=== PATIENT | male | born 1985 | race African-American/Black ===

== ENCOUNTER 2019-09-24 22:58 | Emergency (ER) | payer OTHER, SELFPAY ==
[2019-09-24 23:07] VITALS: BP 147/89; PULSE 85; RESP 18; TEMP 36.8; O2SAT 96
[2019-09-25 00:20] VITALS: PULSE 84; RESP 16
[2019-09-25] MEDS: IPRATROPIUM BR 0.02% INH SOLN 0.5 MG/2.5 ML VIAL INHALATION (00:23)
[2019-09-25] MEDS: ALBUTEROL SULFATE NEB 2.5 MG/3 ML INH 1.25 MG INHALATION (00:23)
[2019-09-25 00:30] VITALS: PULSE 83; RESP 16
--- NOTE | 2019-09-25 01:32 | ED.ASTHMA ---
HPI - Asthma General Chief Complaint: Asthma Stated Complaint: asthma Time Seen by Provider: 09/25/19 01:28 History of Present Illness HPI Narrative: Patient presents with wheezing or shortness of breath. He has a known history of asthma. He only has an Atrovent inhaler, which he said was not helping. 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 He has not had any exposure to sick people. He has had asthma since he was born. complaint: asthma attack , shortness of breath and wheezing Onset (ago): hour(s) Severity: moderate Context: other (Unknown) Asthma History: childhood onset Treatments Prior to Arrival: other (Atrovent inhaler) Related Data Home Medications Medication Instructions Recorded Confirmed No Home Medications 09/24/19 09/24/19 albuterol sulfate [ProAir HFA] 2 puff INHALATION QID PRN 09/24/19 Allergies Allergy/AdvReac Type Severity Reaction Status Date / Time No Known Allergies Allergy Verified 09/24/19 22:59 Review of Systems Review of Systems: Narrative: CONSTITUTIONAL: Denies fever, chills, or sweats. EYES: Denies visual changes, redness, or discharge. ENT: Denies rhinorrhea, congestion, sore throat, or otalgia. CARDIOVASCULAR: Denies chest pain, palpitations, or edema. RESPIRATORY: Has SOB and wheezing. GASTROINTESTINAL: Denies abdominal pain, nausea, vomiting, or diarrhea. GENITOURINARY: Denies dysuria or hematuria. SKIN: Denies rash or itching. MUSCULOSKELETAL: Denies back pain, joint pain, or myalgia. NEUROLOGIC: Denies headache, numbness, or weakness. PSYCHIATRIC: Denies anxiety or depression. PMFSH Surgical History Surgical History History of circumcision Social History Social History (Updated 09/25/19 @ 01:34 by Traci Briones MD) Smoking status: Never smoker Alcohol intake: current Substance use: never Exam Narrative: Exam Narrative: GENERAL: Well-appearing, well-nourished, and in no acute distress.Overweight, sleeping, HEAD: Normocephalic, atraumatic. EYES: PERRLA and EOMI. ENT: Nares clear, no rhinorrhea or epistaxis. Mucous membranes moist. NECK: Supple. CHEST: Scattered wheezes. no respiratory distress. HEART: Regular rate and rhythm. No murmur heard. Normal peripheral pulses. ABDOMEN: Soft, nontender, nondistended, normal active bowel sounds. EXTREMITIES: Normal range of motion. No edema. SKIN: Warm, dry, no rash. NEURO: No focal deficits. Alert and oriented x3. PSYCH: Normal mood and affect. Course Reevaluation(s) Reevaluation #1: Went back into check on the patient, and he was sleeping through his alarm on his phone. His wheezes are gone. He asked for a day off of work. Granted. Date: 09/25/19 Time: 03:06 Vital Signs Vital signs: Vital Signs Temperature 98.3 F 09/24/19 23:07 Pulse Rate 85 09/24/19 23:07 Respiratory Rate 18 09/24/19 23:07 Blood Pressure 147/89 H 09/24/19 23:07 Pulse Oximetry 96 09/24/19 23:07 Temperature 98.3 F 09/24/19 23:07 Pulse Rate 84 09/25/19 02:33 Respiratory Rate 18 09/25/19 02:33 Blood Pressure 150/94 H 09/25/19 01:44 Pulse Oximetry 97 09/25/19 01:44 Discharge Plan Discharge Clinical Impression: Asthma Patient Disposition: Home, Self-Care Condition: Stable Instructions: Asthma (ED) Prescriptions: New methylprednisolone [Medrol (Parviz)] 4 mg tablets,dose pack See Rx Instructions .ROUTE .COMPLEX Qty: 21 RF: 0 No Action albuterol sulfate [ProAir HFA] 90 mcg/actuation Hfa Aerosol Inhaler 2 puff INHALATION QID PRN (Reason: Shortness Of Breath Or Wheezing) RF: 0 No Home Medications RF: 0 Follow-up/Referrals: PHYSICIAN,HYPO DIPPER [Primary Care Provider] - Bandar Lau MD [Physician] - (Call and make a new patient appointment) Stand Alone Forms: Work/School Release IP Time of Disposition: 03:01
[2019-09-25] MEDS: predniSONE 20 MG TABLET 60 MG PO (01:42)
[2019-09-25 01:44] VITALS: BP 150/94; PULSE 89; RESP 20; O2SAT 97
[2019-09-25] MEDS: ALBUTEROL SULFATE NEB 2.5 MG/0.5 ML INH 10 MG INHALATION (01:45)
[2019-09-25 01:48] VITALS: PULSE 85; RESP 18
[2019-09-25 02:33] VITALS: PULSE 84; RESP 18
[2019-09-25 03:18] VITALS: BP 104/57; PULSE 85; RESP 18; O2SAT 97
== END 2019-09-25 03:20 | disposition home or self-care (01) ==
PROVIDERS: Emergency Provider Emergency Medicine
DX: J45.909 Unspecified asthma, uncomplicated (principal)
CPT/HCPCS: 94640; 99284; J7512

== ENCOUNTER 2019-09-26 11:18 | Outpatient (NON) | payer OTHER, SELFPAY ==
[2019-09-27 13:10] LABS: SARS-CoV-2 RNA PCR Negative
== END 2019-09-26 11:19 ==
PROVIDERS: PCP Emergency Medicine; Visit Provider Emergency Medicine
DX: R06.02 Shortness of breath (principal); R05 Cough; Z20.828 Contact with and (suspected) exposure to other viral communicable diseases
CPT/HCPCS: 87635; C9803; U0003

== ENCOUNTER → 2019-10-24 15:55 | Outpatient (CLI) | payer OTHER, SELFPAY ==
--- NOTE | ~2019-10-24 | XR_ITS ---
EXAMINATION: XR chest 2V DATE: 10/24/2019 16:27 INDICATION: Asthma TECHNIQUE: AP and lateral views of the chest are obtained. COMPARISON: None available FINDINGS: The lungs are free of acute opacities. There is no pleural effusion or pneumothorax. The ca rdiomediastinal silhouette is normal. The visualized bones and soft tissues are unremarkable. IMPRESSION: 1. No acute cardiopulmonary abnormality. Reviewed, dictated and finalized at location A.
--- NOTE | ~2019-10-24 | XR_ITS ---
EXAMINATION: XR hand LT min 3V INDICATION: Left hand pain TECHNIQUE: Three views of the left hand are obtained. COMPARISON: None available FINDINGS: There is no fracture, dislocation, or subluxation. The bones, soft tissues, and joint space s are normal. IMPRESSION: 1. No acute osseous abnormality. Reviewed, dictated and finalized at location A.
--- NOTE | ~2019-10-24 | XR_ITS ---
EXAMINATION: XR hand RT min 3V INDICATION: Right hand pain, initial encounter TECHNIQUE: Three views of the right hand are obtained. COMPARISON: None available FINDINGS: There is an age-indeterminate lateral tuft fracture of the fourth distal phalanx. No additi onal acute osseous findings are suspected. The joint spaces are normal. IMPRESSION: 1. Age-indeterminate lateral tuft fracture of the fourth distal phalanx. Reviewed, dictated and finalized at location A.
== END ==
PROVIDERS: PCP Emergency Medicine; Visit Provider Emergency Medicine
DX: J45.909 Unspecified asthma, uncomplicated (principal)
CPT/HCPCS: 71046; 73130

== ENCOUNTER 2020-07-10 16:47 | Emergency (ER) | payer OTHER, MEDICAID, SELFPAY ==
[2020-07-10 17:08] VITALS: BP 170/85; PULSE 82; RESP 18; TEMP 36.6; O2SAT 97
--- NOTE | 2020-07-10 17:48 | PC.NURSE ---
Pt presents to ED with family with no complaints. states he came in to make sure that I wasn't sick and didn't have any viruses . Pt denies all pain and discomfort, nausea, emesis, fever, cough, chest pain and sob at this time. Pt resting on cart in room in no obvious distress. Breathing noted to be even and unlabored. call button and personal items within reach. Advised to press call button for assistance.
--- NOTE | 2020-07-10 17:52 | ED.GENADULT ---
HPI - General Adult General Chief complaint: Nausea/Vomiting/Diarrhea Stated complaint: n/v/d Time Seen by Provider: 07/10/20 16:49 Source: patient Mode of arrival: ambulatory Limitations: no limitations History of Present Illness HPI narrative: Patient is a 35-year-old male who presents to emergency department for evaluation of concern for illness noting that his and daughter both had vomiting and diarrhea for the last day patient himself denies any symptoms and presents in no distress denies pain denies vomiting denies diarrhea has not taken anything for his symptoms Related Data Home Medications Medication Instructions Recorded Confirmed No Home Medications 09/24/19 09/24/19 albuterol sulfate [ProAir HFA] 2 puff INHALATION QID PRN 09/24/19 Allergies Allergy/AdvReac Type Severity Reaction Status Date / Time No Known Allergies Allergy Verified 07/10/20 17:11 Review of Systems Review of Systems: All systems reviewed & are unremarkable except as noted in HPI and below PMFSH Surgical History Surgical History History of circumcision Social History Social History Smoking status: Never smoker Alcohol intake: current Substance use: never Gender identity (if verbalized by the patient): Male Exam Narrative: Exam Narrative: GENERAL: Well-appearing, well-nourished, and in no acute distress. HEAD: Normocephalic, atraumatic. EYES: PERRLA and EOMI. ENT: Nares clear, no rhinorrhea or epistaxis. Mucous membranes moist. CHEST: Clear to auscultation. No respiratory distress. No wheezes rales or rhonchi HEART: Regular rate and rhythm. No murmur heard. EXTREMITIES: Normal range of motion. No edema. SKIN: Warm, dry, no rash. NEURO: No focal deficits. Alert and oriented x3. Neurovascularly intact. Cranial nerves II through XII grossly intact PSYCH: Normal mood and affect. Course Course Emergency Course: Patient with no complaints in the emergency department resting comfortably will be discharged provided with reasons to return Vital Signs Vital signs: Vital Signs Temperature 98 F 07/10/20 17:08 Pulse Rate 82 07/10/20 17:08 Respiratory Rate 18 07/10/20 17:08 Blood Pressure 170/85 H 07/10/20 17:08 Pulse Oximetry 97 07/10/20 17:08 Temperature 98 F 07/10/20 17:08 Pulse Rate 82 07/10/20 17:08 Respiratory Rate 18 07/10/20 17:08 Blood Pressure 170/85 H 07/10/20 17:08 Pulse Oximetry 97 07/10/20 17:08 Medical Decision Making MDM Narrative Medical decision making narrative: Patient with no distress no complaints will be discharged home Vital Signs Vital Signs: Vital Signs Temperature 98 F 07/10/20 17:08 Pulse Rate 82 07/10/20 17:08 Respiratory Rate 18 07/10/20 17:08 Blood Pressure 170/85 H 07/10/20 17:08 Pulse Oximetry 97 07/10/20 17:08 Temperature 98 F 07/10/20 17:08 Pulse Rate 82 07/10/20 17:08 Respiratory Rate 18 07/10/20 17:08 Blood Pressure 170/85 H 07/10/20 17:08 Pulse Oximetry 97 07/10/20 17:08 Discharge Plan Discharge Clinical Impression: Nausea Patient Disposition: Home, Self-Care Condition: Stable Instructions: Antibiotic Form, Acute Nausea and Vomiting (ED) Prescriptions: No Action albuterol sulfate [ProAir HFA] 90 mcg/actuation Hfa Aerosol Inhaler 2 puff INHALATION QID PRN (Reason: Shortness Of Breath Or Wheezing) RF: 0 No Home Medications RF: 0 methylprednisolone [Medrol (Parviz)] 4 mg tablets,dose pack See Rx Instructions .ROUTE .COMPLEX Qty: 21 RF: 0 Follow-up/Referrals: Bandar Lau MD [Primary Care Provider] -
== END 2020-07-10 18:06 | disposition home or self-care (01) ==
PROVIDERS: Emergency Provider Emergency Medicine; PCP Emergency Medicine
DX: R11.0 Nausea (principal)
CPT/HCPCS: 99281

== ENCOUNTER 2020-07-13 03:17 | Emergency (ER) | payer OTHER, MEDICAID, SELFPAY ==
[2020-07-13] VITALS (10 sets, daily range): BP systolic 123–158; BP diastolic 68–97; PULSE 72–95; RESP 14–17; TEMP 36.4–37; O2SAT 90–97
[2020-07-13 04:02] LABS: Basophils Percent Auto 0.3 % (0.2-1.2); Eosinophils Absolute Auto 0.1 K/mm3 (0-0.3); Hematocrit 47.3 % (42.0-52.0); Hemoglobin 15.4 g/dL (14.0-18.0); Immature Granulocyte Absolute 0.04 K/mm3 (0.00-0.031); Immature Granulocyte Percent A 0.4 % (0-0.5); Lymphocytes Percent Auto 10.7 % (18.3-44.2); Mean Corpuscular HGB Conc 32.6 g/dl (32-36); Mean Corpuscular Hemoglobin 28.5 pg (26-34); Mean Corpuscular Volume 87.4 fl (80-100); Mean Platelet Volume 11.5 fl (7.4-10.4); Monocytes Absolute Auto 0.7 K/mm3 (0.1-0.6); Monocytes Percent Auto 6.8 % (2.6-8.5); Neutrophils Absolute Auto 8.3 K/mm3 (1.3-6.7); Neutrophils Percent Auto 80.8 % (45.5-73.1); Platelet Count Result 163 k/mm3 (150-375); Red Blood Count 5.41 M/mm3 (4.6-6.20); White Blood Count 10.2 K/mm3 (4.5-10.0)
[2020-07-13 04:06] LABS: Add Urine Microscopic? YES; Appearance Urine Clear (Clear); Bacteria Urine Trace /hpf; Bilirubin Urine Negative (Negative); Blood Urine Negative (Negative); Color Urine Yellow (Yellow); Glucose Urine UA Negative (Negative); Ketones Urine Negative (Negative); Leukocyte Esterase Ur Negative LEU/UL (Negative); Mucus Urine Rare /lpf; Nitrate Urine Negative (Negative); Protein Urine 1+ mg/dL (Negative); RBC Urine 0-2 /hpf (0-2); WBC Urine 0-3 /hpf
[2020-07-13] MEDS: ONDANSETRON INJ 4 MG/2 ML VIAL IV PUSH (04:06)
--- NOTE | 2020-07-13 04:06 | ED.GENADULT ---
HPI - General Adult General Chief complaint: Nausea/Vomiting/Diarrhea Stated complaint: N/V/D XTD Time Seen by Provider: 07/13/20 03:25 History of Present Illness HPI narrative: Patient is a 35-year-old gentleman who presents to emergency department with chief complaint of nausea vomiting and diarrhea. Patient reports that multiple family members in his household with gastroenteritis and he has been unable to tolerate p.o. intake today. The patient states that he feels a little lightheaded reports that his stomach is cramping and reports that he has had several episodes of diarrhea. Patient reports that it is worsened with p.o. intake and improved with rest Related Data Home Medications Medication Instructions Recorded Confirmed albuterol sulfate [ProAir HFA] 2 puff INHALATION QID PRN 09/24/19 Allergies Allergy/AdvReac Type Severity Reaction Status Date / Time No Known Allergies Allergy Verified 07/13/20 04:25 Review of Systems Review of Systems: Narrative: A 10 system review of systems was completed on the patient and is negative except for what is stated in the HPI. Nursing and ancillary documentation was reviewed. [facility] Surgical History Surgical History History of circumcision Social History Social History Smoking status: Never smoker Alcohol intake: current Substance use: never Gender identity (if verbalized by the patient): Male Exam Narrative: Exam Narrative: GENERAL: Well-appearing, well-nourished, and in no acute distress. HEAD: Normocephalic, atraumatic. EYES: PERRLA and EOMI. ENT: Nares clear, no rhinorrhea or epistaxis. Mucous membranes moist. NECK: Supple. CHEST: Clear to auscultation. No respiratory distress. HEART: Regular rate and rhythm. No murmur heard. Normal peripheral pulses. ABDOMEN: Soft, nontender, nondistended, normal active bowel sounds. EXTREMITIES: Normal range of motion. No edema. SKIN: Warm, dry, no rash. NEURO: No focal deficits. Alert and oriented x3. PSYCH: Normal mood and affect. Course Vital Signs Vital signs: Vital Signs Temperature 36.4 C 07/13/20 03:24 Pulse Rate 87 07/13/20 03:24 Respiratory Rate 14 07/13/20 03:24 Blood Pressure 147/85 H 07/13/20 03:24 Pulse Oximetry 96 07/13/20 03:24 Temperature 36.4 C 07/13/20 03:24 Pulse Rate 88 07/13/20 05:47 Respiratory Rate 17 07/13/20 05:47 Blood Pressure 125/68 07/13/20 05:47 Pulse Oximetry 95 07/13/20 04:31 Medical Decision Making Vital Signs Vital Signs: Vital Signs Temperature 36.4 C 07/13/20 03:24 Pulse Rate 87 07/13/20 03:24 Respiratory Rate 14 07/13/20 03:24 Blood Pressure 147/85 H 07/13/20 03:24 Pulse Oximetry 96 07/13/20 03:24 Temperature 36.4 C 07/13/20 03:24 Pulse Rate 88 07/13/20 05:47 Respiratory Rate 17 07/13/20 05:47 Blood Pressure 125/68 07/13/20 05:47 Pulse Oximetry 95 07/13/20 04:31 Lab Data Result diagrams: 07/13/20 03:55 07/13/20 03:55 Labs: Lab Results 07/13/20 07/13/20 07/13/20 Range/Units 03:55 03:55 03:55 WBC 10.2 H (4.5-10.0) K/mm3 RBC 5.41 (4.6-6.20) M/mm3 Hgb 15.4 (14.0-18.0) g/dL Hct 47.3 (42.0-52.0) % MCV 87.4 (80-100) fl MCH 28.5 (26-34) pg MCHC 32.6 (32-36) g/dl RDW 13.0 (11.5-14.5) % Plt Count 163 (150-375) k/mm3 MPV 11.5 H (7.4-10.4) fl Immature Gran % (Auto) 0.4 (0-0.5) % Neut % (Auto) 80.8 H (45.5-73.1) % Lymph % (Auto) 10.7 L (18.3-44.2) % [place] % (Auto) 6.8 (2.6-8.5) % Eos % (Auto) 1.0 (0-4.4) % Baso % (Auto) 0.3 (0.2-1.2) % Lymph # (Auto) 1.10 (0.9-3.2) K/mm3 [place] # (Auto) 0.7 H (0.1-0.6) K/mm3 Eos # (Auto) 0.1 (0-0.3) K/mm3 Baso # (Auto) 0.0 (0.0-0.1) K/mm3 Abs Immat Gran (auto) 0.04 H (0.00-0.031) K/mm3 Absolute N
[2020-07-13 04:10] LABS: Specific Grav Ur 1.031 (1.001-1.035)
[2020-07-13 04:14] LABS: Alanine Aminotransferase 25 U/L (4-50); Albumin Level 4.3 g/dL (3.5-5.1); Alkaline Phosphatase 50 U/L (38-126); Anion Gap 4 mmol/L (8-16); Aspartate Amino Transferase 37 U/L (17-59); Bilirubin,Total 0.6 mg/dL (0.2-1.3); Blood Urea Nitrogen 18 mg/dL (9-20); Calcium 8.5 mg/dL (8.4-10.2); Carbon Dioxide 31 mmol/L (22-30); Chloride 104 mmol/L (98-107); Estimated CRCL calculation 109 ml/min; Estimated Glomerular Filt Rate > 60; Glucose 112 mg/dL (75-110); Lipase 57 U/L (23-300); Potassium 4.3 mmol/L (3.4-5.0); Sodium 139 mmol/L (137-145)
[2020-07-13] MEDS: SODIUM CHLORIDE 0.9% IV 1,000 ML 999 ML IV CONT (04:42)
== END 2020-07-13 06:22 | disposition home or self-care (01) ==
PROVIDERS: Emergency Provider Emergency Medicine; PCP Emergency Medicine
DX: K52.9 Noninfective gastroenteritis and colitis, unspecified (principal)
CPT/HCPCS: 36415; 80053; 81001; 83690; 85025; 96361; 96374; 99284; J2405; J7030

== ENCOUNTER 2020-08-08 10:57 | Emergency (ER) | payer OTHER, MEDICAID, SELFPAY ==
--- NOTE | ~2020-08-08 | US_ITS ---
EXAMINATION: US venous doppler [facility] EXAM DATE: 08/08/2020 12:34 INDICATION: Left lower extremity pain. TECHNIQUE: Multiple grayscale, color flow and Doppler images of the left lower extremity deep venous system were obtained and reviewed. There is no prior study for comparison. FINDINGS: The left common femoral, femoral and profunda veins demonstrate normal color flow, respirat ory variation, augmentation and compressibility. Compressibility, color flow confirmed within the le ft popliteal, posterior tibial, peroneal, and greater saphenous veins. IMPRESSION: 1. No left lower extremity deep venous thrombosis. Reviewed, dictated and finalized at location A.
[2020-08-08 11:27] VITALS: BP 129/68; PULSE 78; RESP 16; TEMP 36.8; O2SAT 97
--- NOTE | 2020-08-08 12:09 | ED.LOWEXIN ---
HPI - Extremity Injury (Lower) General Chief Complaint: Extremity Injury, Lower Stated Complaint: left calf muscle pain Time Seen by Provider: 08/08/20 12:08 Source: patient Mode of arrival: ambulatory Limitations: no limitations History of Present Illness HPI Narrative: Patient is a 35-year-old male complaining of left calf pain, 8 out of 10, aching, started approximately 1 week ago after injuring it while playing basketball. Patient denies any other pain or injury. Patient denies any chest pain, shortness of breath, fever or chills. Related Data Home Medications Medication Instructions Recorded Confirmed albuterol sulfate [ProAir HFA] 2 puff INHALATION QID PRN 09/24/19 Allergies Allergy/AdvReac Type Severity Reaction Status Date / Time No Known Allergies Allergy Verified 08/08/20 11:29 Review of Systems Review of Systems: All systems reviewed & are unremarkable except as noted in HPI and below Constitutional: Constitutional: Denies body ache(s), Denies chills, Denies excessive sweating, Denies fatigue, Denies fever(s), Denies headache(s), Denies lethargy, Denies malaise, Denies weakness and Denies weight loss Eyes: Eyes: Denies blurry vision, Denies change in vision and Denies loss of vision ENT: Denies dizziness, Denies ear discharge, Denies headache(s), Denies lip swelling, Denies epistaxis, Denies nasal congestion, Denies neck pain, Denies throat swelling and Denies tongue swelling Cardiovascular: Cardiovascular: Denies chest pain, Denies chest pain at rest, Denies chest pain with activity, Denies diaphoresis, Denies rapid heart rate, Denies edema, Denies irregular heart rhythm, Denies lightheadedness, Denies palpitations, Denies dyspnea and Denies dyspnea on exertion Respiratory: Respiratory: Denies chest congestion, Denies cough, Denies hemoptysis, Denies dyspnea and Denies dyspnea on exertion Gastrointestinal: Gastrointestinal: Denies abdominal pain, Denies melena, Denies hematochezia, Denies diarrhea, Denies nausea, Denies vomiting and Denies hematemesis Musculoskeletal: Musculoskeletal: Denies abnormal gait, Denies deformity, Denies joint swelling, Denies limited range of motion, Denies neck pain and Denies numbness Neurologic: Denies Abnormal speech present, Denies abnormal gait, Denies confusion, Denies dizziness, Denies headache(s), Denies focal weakness, Denies loss of vision, Denies numbness, Denies Other visual disturbances, Denies Sensory deficit (Neuro) and Denies weakness Psychiatric: Psychiatric: Denies confusion, Denies depression, Denies auditory hallucinations, Denies homicidal ideation and Denies suicidal ideation Endocrine: Endocrine: Denies cold intolerance, Denies excessive sweating, Denies fatigue, Denies heat intolerance and Denies palpitations Hematologic/Lymphatic: Hematologic/Lymphatic: Denies easy bleeding and Denies easy bruising Allergic/Immunologic: Allergic/Immunologic: Denies lip swelling, Denies throat swelling and Denies tongue swelling PMFSH Surgical History Surgical History History of circumcision Social History Social History Smoking status: Never smoker Alcohol intake: current Substance use: never Gender identity (if verbalized by the patient): Male Comments Past medical history: None Family history: None Social history: Non-smoker no EtOH use, no drug use Exam Const: General: no acute distress and alert Orientation/consciousness: patient oriented x3 HENMT: Head: normal to inspection Neck: Neck: normal visual inspection Resp: Effort & Inspection: normal respiratory effort Skin: General skin exam: normal color Rashes: no rashes Neuro: General: moves all extremities Speech: normal speech Extrem: General: no clubbing, cyanosis or edema Other: Pain on palpation left lateral calf area, negative for any significant swelling, negative for re
[2020-08-08] MEDS: IBUPROFEN 400 MG TABLET 800 MG PO (15:48)
[2020-08-08] MEDS: CYCLOBENZAPRINE HCL 10 MG TABLET PO (15:48)
== END 2020-08-08 15:49 | disposition home or self-care (01) ==
PROVIDERS: Emergency Provider Emergency Medicine; PCP Emergency Medicine
DX: S16.1XXA Strain of muscle, fascia and tendon at neck level, initial encounter (principal); X58.XXXA Exposure to other specified factors, initial encounter; Y93.67 Activity, basketball
CPT/HCPCS: 93971; 99284; A9270

== ENCOUNTER 2022-05-04 06:56 | Emergency (ER) | payer BC, MEDICAID, SELFPAY ==
[2022-05-04 07:02] VITALS: BP 152/90; PULSE 76; RESP 18; TEMP 36.7; O2SAT 99
[2022-05-04] MEDS: KETOROLAC (*BKC) 60 MG/2 ML VIAL IM (08:01)
[2022-05-04 08:04] LABS: Strep Group A RT-PCR NOT DETECTED (Negative)
--- NOTE | 2022-05-04 08:10 | ED.GENADULT ---
HPI - General Adult General Chief complaint: Unspecified Stated complaint: sore throat, headache Time Seen by Provider: 05/04/22 07:30 History of Present Illness HPI narrative: Patient is a 37-year-old male who presents ER with sore throat. Began yesterday. Associated with discomfort bilaterally in the anterior aspect of his neck that is worse with rotational movements of the head. No difficulty breathing or swallowing. Denies fevers or chills or sweats. Denies sinus congestion. Denies cough or hoarseness of the voice. Reports she was at [facility] and was diagnosed with laryngitis last night and had a strep swab which was negative. Reports he felt like they rushed him out and so he wanted to seek a second opinion. Reports no known sick contacts but works around the general public and may have been exposed. Related Data Home Medications Medication Instructions Recorded Confirmed albuterol sulfate 90 mcg/actuation 2 puff inhalation QID PRN 09/24/19 aerosol inhaler (ProAir HFA) Shortness Of Breath Or Wheezing Allergies Allergy/AdvReac Type Severity Reaction Status Date / Time No Known Allergies Allergy Verified 05/04/22 07:29 [facility] Past Medical History Medical History (Updated 05/04/22 @ 10:34 by Jarad Green MD) Asthma Surgical History Surgical History History of circumcision Social History Social History Smoking status: Never smoker Alcohol intake: current Substance use: never Gender identity (if verbalized by the patient): Male Exam Narrative: GENERAL: Well-appearing, well-nourished, and in no acute distress. HEAD: Normocephalic, atraumatic. ENT: Mucous membranes moist. No pharyngeal erythema or tonsillar exudate. NECK: Supple. Mild discomfort over the anterior cervical chain without large lymphadenopathy. CHEST: Clear to auscultation. No respiratory distress. HEART: Regular rate and rhythm. Normal peripheral pulses. NEURO: Alert and oriented x3. PSYCH: Normal mood and affect. Course Course Emergency Course: Patient feels improved with Toradol. No difficulty breathing or swallowing. Tolerating oral secretions. Influenza/COVID/strep testing negative. Discharge home. Vital Signs Vital signs: Vital Signs Temperature 98.1 F 05/04/22 07:02 Pulse Rate 76 05/04/22 07:02 Respiratory Rate 18 05/04/22 07:02 Blood Pressure 152/90 H 05/04/22 07:02 Pulse Oximetry 99 05/04/22 07:02 Oxygen Delivery Room Air 05/04/22 07:02 Temperature 98.1 F 05/04/22 07:02 Pulse Rate 76 05/04/22 07:02 Respiratory Rate 18 05/04/22 07:02 Blood Pressure 152/90 H 05/04/22 07:02 Pulse Oximetry 99 05/04/22 07:02 Oxygen Delivery Room Air 05/04/22 07:02 Medical Decision Making Vital Signs Vital Signs: Vital Signs Temperature 98.1 F 05/04/22 07:02 Pulse Rate 76 05/04/22 07:02 Respiratory Rate 18 05/04/22 07:02 Blood Pressure 152/90 H 05/04/22 07:02 Pulse Oximetry 99 05/04/22 07:02 Oxygen Delivery Room Air 05/04/22 07:02 Temperature 98.1 F 05/04/22 07:02 Pulse Rate 76 05/04/22 07:02 Respiratory Rate 18 05/04/22 07:02 Blood Pressure 152/90 H 05/04/22 07:02 Pulse Oximetry 99 05/04/22 07:02 Oxygen Delivery Room Air 05/04/22 07:02 Lab Data Labs: Lab Results 05/04/22 05/04/22 Range/Units 07:34 07:57 Influenza A (RT-PCR) Negative (Negative) Influenza B (RT-PCR) Negative (Negative) SARS-CoV-2 RNA (RT-PCR) Negative Group A Strep (PCR) Not detected (Negative) Discharge Plan Discharge Clinical Impression: Lymphadenitis Patient Disposition: Home, Self-Care Condition: Stable Instructions: Adenitis (ED) Additional Instructions: The ER if you cannot breathe, you cannot swallow, you have chest pain, you have additional concerns. Prescription
[2022-05-04 08:39] LABS: Influenza A QL RT-PCR Negative (Negative); Influenza B QL RT-PCR Negative (Negative); SARS-CoV-2 RNA PCR Negative
== END 2022-05-04 10:49 | disposition home or self-care (01) ==
PROVIDERS: Emergency Provider Emergency Medicine
DX: I88.9 Nonspecific lymphadenitis, unspecified (principal); Z20.822 Contact with and (suspected) exposure to COVID-19; J45.909 Unspecified asthma, uncomplicated
CPT/HCPCS: 87636; 87651; 96372; 99283; J1885

== ENCOUNTER → 2022-06-20 15:55 | Outpatient (CLI) | payer BC, MEDICAID, SELFPAY ==
--- NOTE | ~2022-06-20 | XR_ITS ---
EXAMINATION: XR lumbar spine 2-3V DATE: 06/20/2022 16:14 INDICATION: Left-sided low back pain. TECHNIQUE: 3 views of lumbar spine were obtained. COMPARISON: None. FINDINGS: Bone alignment is normal. Vertebral body heights and intervertebral disc heights are normal . There are endplate osteophytes at L1-L2. The facet joints are unremarkable. IMPRESSION: 1. No etiology for the patient's symptoms. Reviewed, dictated and finalized at location A. E MAN
== END ==
PROVIDERS: PCP Emergency Medicine; Visit Provider Emergency Medicine
DX: M54.50 Low back pain, unspecified (principal)
CPT/HCPCS: 72100

== ENCOUNTER 2023-08-09 06:00 | Emergency (ER) | payer BC, MEDICAID, SELFPAY ==
--- NOTE | ~2023-08-09 | XR_ITS ---
Clinical Indication: Chest pain PA and lateral views of the chest: Comparison: None Findings: The lungs are clear, without evidence of focal consolidation or pleural effusion. Cardiome diastinal silhouette is within normal limits. Bones and soft tissues are unremarkable. Impression: Normal chest. Reviewed, dictated and finalized at location . Impression: Normal chest.
[2023-08-09 06:03] VITALS: BP 139/81; PULSE 72; RESP 12; TEMP 36.9; O2SAT 97
--- NOTE | 2023-08-09 06:07 | ECG_ITS ---
Measurements Intervals [place] Rate: 66 P: 70 IN: 177 QRS: 90 QRSD: 109 T: 64 QT: 377 Avg RR 904 QTc: 390 QTcB 396 QTcF 389 Interpretive Statements SINUS RHYTHM WITH SINUS ARRHYTHMIA NORMAL ECG SEE SCANNED COPY FOR SIGNATURE MTDD
[2023-08-09 06:19] LABS: Basophils Absolute Auto 0.1 K/mm3 (0.0-0.1); Basophils Percent Auto 0.7 % (0.2-1.2); Eosinophils Absolute Auto 0.2 K/mm3 (0-0.3); Eosinophils Percent Auto 2.2 % (0-4.4); Hematocrit 47.9 % (42.0-52.0); Hemoglobin 15.1 g/dL (14.0-18.0); Immature Granulocyte Absolute 0.02 K/mm3 (0.00-0.031); Immature Granulocyte Percent A 0.3 % (0-0.5); Lymphocytes Absolute Auto 1.77 K/mm3 (0.9-3.2); Lymphocytes Percent Auto 24.7 % (18.3-44.2); Mean Corpuscular HGB Conc 31.5 g/dl (32-36); Mean Corpuscular Hemoglobin 28.3 pg (26-34); Mean Corpuscular Volume 89.7 fl (80-100); Mean Platelet Volume 11.9 fl (7.4-10.4); Monocytes Absolute Auto 0.6 K/mm3 (0.1-0.6); Monocytes Percent Auto 7.7 % (2.6-8.5); Neutrophils Absolute Auto 4.6 K/mm3 (1.3-6.7); Neutrophils Percent Auto 64.4 % (45.5-73.1); Platelet Count Result 175 k/mm3 (150-375); Red Blood Count 5.34 M/mm3 (4.6-6.20); Red Cell Distribution Width 13.2 % (11.5-14.5); White Blood Count 7.2 K/mm3 (4.5-10.0)
[2023-08-09 06:28] LABS: Prothrombin Time 13.2 Seconds (11.1-14.7)
[2023-08-09 06:29] LABS: Alanine Aminotransferase 19 U/L (6-50); Albumin Level 4.4 g/dL (3.5-5.1); Alkaline Phosphatase 53 U/L (38-126); Anion Gap 2 mmol/L (4-12); Aspartate Amino Transferase 25 U/L (17-59); Bilirubin,Total 0.7 mg/dL (0.2-1.3); Blood Urea Nitrogen 9 mg/dL (9-20); Calcium 8.9 mg/dL (8.4-10.2); Carbon Dioxide 30 mmol/L (22-30); Chloride 104 mmol/L (98-107); Estimated CRCL calculation 128 ml/min; Estimated Glomerular Filt Rate > 60; Glucose 106 mg/dL (65-110); Lipase 56 U/L (23-300); Partial Thromboplastin Time 27.2 Seconds (22.3-36.8); Sodium 136 mmol/L (137-145)
[2023-08-09 06:40] LABS: Troponin I < 0.012 ng/mL (0.000-0.034)
[2023-08-09 06:45] VITALS: O2SAT 96
[2023-08-09 07:00] VITALS: BP 112/72; PULSE 66; RESP 17; O2SAT 96
--- NOTE | 2023-08-09 07:25 | ED.CHESTPAIN ---
HPI - Chest Pain General Chief Complaint: Chest Pain Stated Complaint: chest pain Time Seen by Provider: 08/09/23 07:03 History of Present Illness HPI narrative: Patient is a 38-year-old male who presents ER with left-sided chest pain. He reports it is a tight sensation. It lasts no longer than 20 seconds. It occurs sporadically. No aggravating or alleviating factors. There are no associated symptoms with the discomfort. No history of coronary disease. Related Data Home Medications Medication Instructions Recorded Confirmed albuterol sulfate 90 mcg/actuation 2 puff inhalation QID PRN 09/24/19 aerosol inhaler (ProAir HFA) Shortness Of Breath Or Wheezing Allergies Allergy/AdvReac Type Severity Reaction Status Date / Time No Known Allergies Allergy Verified 05/04/22 07:29 Review of Systems Review of Systems: All systems reviewed & are unremarkable except as noted in HPI and below Constitutional: Constitutional: Reports no additional constitutional complaints ENT: Reports system reviewed and no additional complaints, except as documented Cardiovascular: Cardiovascular: Reports chest pain, Denies rapid heart rate and Denies radiating jaw, neck or arm pain Respiratory: Respiratory: Reports no additional respiratory complaints Gastrointestinal: Gastrointestinal: Reports no additional gastrointestinal complaints [facility] Past Medical History Medical History (Updated 08/09/23 @ 07:30 by Jarad Green MD) Asthma Surgical History Surgical History History of circumcision Social History Social History Smoking status: Never smoker Alcohol intake: current Substance use: never Gender identity (if verbalized by the patient): Male Exam Narrative: GENERAL: Well-appearing, morbidly obese, and in no acute distress. HEAD: Normocephalic, atraumatic. ENT: Mucous membranes moist. CHEST: Clear to auscultation. No respiratory distress. HEART: Regular rate and rhythm. Normal peripheral pulses. ABDOMEN: Soft, nontender, nondistended EXTREMITIES: Normal range of motion. No edema. SKIN: Warm, dry, no rash. NEURO: Alert and oriented x3. PSYCH: Normal mood and affect. Course Course Emergency Course: patient resting comfortably. Chest pain-free. Troponin negative. Other labs unremarkable. Chest x-ray without acute process. EKG normal. Vital Signs Vital signs: Vital Signs Temperature 98.5 F 08/09/23 06:03 Pulse Rate 72 08/09/23 06:03 Respiratory Rate 12 08/09/23 06:03 Blood Pressure 139/81 08/09/23 06:03 Pulse Oximetry 97 08/09/23 06:03 Oxygen Delivery Room Air 08/09/23 06:03 Temperature 98.5 F 08/09/23 06:03 Pulse Rate 66 08/09/23 07:00 Respiratory Rate 17 08/09/23 07:00 Blood Pressure 112/72 08/09/23 07:00 Pulse Oximetry 96 08/09/23 07:00 Oxygen Delivery Room Air 08/09/23 06:45 MDM - Chest Pain Lab Data 08/09/23 06:13 08/09/23 06:13 Labs: Lab Results 08/09/23 Range/Units 06:13 WBC 7.2 (4.5-10.0) K/mm3 RBC 5.34 (4.6-6.20) M/mm3 Hgb 15.1 (14.0-18.0) g/dL Hct 47.9 (42.0-52.0) % MCV 89.7 (80-100) fl MCH 28.3 (26-34) pg MCHC 31.5 L (32-36) g/dl RDW 13.2 (11.5-14.5) % Plt Count 175 (150-375) k/mm3 MPV 11.9 H (7.4-10.4) fl Immature Gran % (Auto) 0.3 (0-0.5) % Neut % (Auto) 64.4 (45.5-73.1) % Lymph % (Auto) 24.7 (18.3-44.2) % [place] % (Auto) 7.7 (2.6-8.5) % Eos % (Auto) 2.2 (0-4.4) % Baso % (Auto) 0.7 (0.2-1.2) % Lymph # (Auto) 1.77 (0.9-3.2) K/mm3 [place] # (Auto) 0.6 (0.1-0.6) K/mm3 Eos # (Auto) 0.2 (0-0.3) K/mm3 Baso # (Auto) 0.1 (0.0-0.1) K/mm3 Abs Immat Gran (auto) 0.02 (0.00-0.031) K/mm3 Absolute Neuts (auto) 4.6 (1.3-6.7) K/mm3 Absolute Nucleated RBC 0.000 (0.0-0.012) K/mm3 Nucleated RBC % 0.0 (0.0-0.2)
== END 2023-08-09 07:45 | disposition home or self-care (01) ==
LOC: ANHED 07:37
PROVIDERS: Emergency Medicine; Emergency Provider Emergency Medicine; PCP Emergency Medicine
DX: R07.9 Chest pain, unspecified (principal); J45.909 Unspecified asthma, uncomplicated
CPT/HCPCS: 36415; 71046; 80053; 83690; 84484; 85025; 85610; 85730; 93005; 99284

== ENCOUNTER 2023-10-01 20:54 | Emergency (ER) | payer BC, SELFPAY ==
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
--- NOTE | ~2023-10-01 | XR_ITS ---
AP view of the pelvis and AP and lateral views of the left hip Clinical history: Pain Findings: No acute fracture or dislocation is seen. Osseous alignment is anatomic. Bilateral hip and SI joint spaces are preserved. Soft tissues are unremarkable. Impression: No significant abnormality is seen. Reviewed, dictated and finalized at [facility]. Impression: No significant abnormality is seen.
[2023-10-01 20:55] VITALS: BP 148/84; PULSE 87; RESP 17; TEMP 36.7; O2SAT 95
[2023-10-01 21:20] VITALS: PULSE 95; RESP 18; TEMP 36.8; O2SAT 97
[2023-10-01 22:17] LABS: Basophils Absolute Auto 0.1 K/mm3 (0.0-0.1); Basophils Percent Auto 0.7 % (0.2-1.2); Eosinophils Absolute Auto 0.2 K/mm3 (0-0.3); Eosinophils Percent Auto 2.9 % (0-4.4); Hematocrit 45.1 % (42.0-52.0); Hemoglobin 14.4 g/dL (14.0-18.0); Immature Granulocyte Absolute 0.02 K/mm3 (0.00-0.031); Immature Granulocyte Percent A 0.3 % (0-0.5); Lymphocytes Absolute Auto 1.96 K/mm3 (0.9-3.2); Lymphocytes Percent Auto 26.8 % (18.3-44.2); Mean Corpuscular HGB Conc 31.9 g/dl (32-36); Mean Corpuscular Hemoglobin 28.3 pg (26-34); Mean Corpuscular Volume 88.8 fl (80-100); Mean Platelet Volume 12.1 fl (7.4-10.4); Monocytes Absolute Auto 0.7 K/mm3 (0.1-0.6); Neutrophils Absolute Auto 4.4 K/mm3 (1.3-6.7); Neutrophils Percent Auto 60.3 % (45.5-73.1); Platelet Count Result 159 k/mm3 (150-375); Red Blood Count 5.08 M/mm3 (4.6-6.20); Red Cell Distribution Width 13.3 % (11.5-14.5); White Blood Count 7.3 K/mm3 (4.5-10.0)
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
[2023-10-01 23:49] LABS: Estimated CRCL calculation 112 ml/min; Estimated Glomerular Filt Rate > 60
[2023-10-01 23:53] LABS: Alanine Aminotransferase 20 U/L (6-50); Albumin Level 4.2 g/dL (3.5-5.1); Alkaline Phosphatase 44 U/L (38-126); Anion Gap 5 mmol/L (4-12); Aspartate Amino Transferase 28 U/L (17-59); Bilirubin,Total 0.5 mg/dL (0.2-1.3); Blood Urea Nitrogen 11 mg/dL (9-20); Calcium 8.6 mg/dL (8.4-10.2); Carbon Dioxide 30 mmol/L (22-30); Chloride 105 mmol/L (98-107); Estimated CRCL calculation 137 ml/min; Estimated Glomerular Filt Rate > 60; Glucose 118 mg/dL (65-110); Sodium 140 mmol/L (137-145)
[2023-10-02 00:44] VITALS: BP 134/79; PULSE 57; RESP 15; O2SAT 99
[2023-10-02 02:05] VITALS: BP 138/80; PULSE 59; RESP 15; O2SAT 99
== END 2023-10-02 02:47 | disposition home or self-care (01) ==
PROVIDERS: Emergency Provider Emergency Medicine; PCP Emergency Medicine
DX: S16.1XXA Strain of muscle, fascia and tendon at neck level, initial encounter (principal); S46.912A Strain of unspecified muscle, fascia and tendon at shoulder and upper arm level, left arm, initial encounter; S76.012A Strain of muscle, fascia and tendon of left hip, initial encounter; J45.909 Unspecified asthma, uncomplicated; V40.5XXA Car driver injured in collision with pedestrian or animal in traffic accident, initial encounter
CPT/HCPCS: 36415; 70450; 70498; 71045; 73502; 80053; 85025; 99284; Q9967

== ENCOUNTER 2024-02-17 06:47 | Emergency (ER) | payer MEDICAID, SELFPAY ==
[2024-02-17] VITALS (14 sets, daily range): BP systolic 133–176; BP diastolic 67–107; PULSE 71–98; RESP 14–20; TEMP 36.6; O2SAT 92–99
--- NOTE | ~2024-02-17 | XR_ITS ---
EXAMINATION: XR chest 2V 02/17/2024 07:52 INDICATION: Left-sided chest pain and shortness of breath PROCEDURE: 2 view chest COMPARISON: 10/01/2023 FINDINGS: The lungs are clear. The cardiomediastinal silhouette is within normal limits. There are no pleural effusions. There is no pneumothorax suspected. IMPRESSION: 1: NO ACUTE CARDIOPULMONARY DISEASE. Reviewed, dictated and finalized at location B.
--- NOTE | 2024-02-17 06:48 | ECG_ITS ---
Test Date: 2024-02-17 06:54:12 Measurements Intervals Vancleve Rate: 93 P: 75 ND: 152 QRS: 93 QRSD: 105 T: 65 QT: 339 QTc: 422 Interpretive Statements SINUS RHYTHM POOR R-WAVE PROGRESSION BORDERLINE RIGHT AXIS DEVIATION [QRS AXIS > 90] BORDERLINE ECG No previous ECG available for comparison Electronically Signed On 02-17-2024 09:51:29 CDT by Jose Brown M.D.
[2024-02-17 07:08] LABS: Hematocrit 47.4 % (42.0-52.0); Hemoglobin 14.9 g/dL (14.0-18.0); Mean Corpuscular HGB Conc 31.4 g/dl (32-36); Mean Corpuscular Hemoglobin 28.5 pg (26-34); Mean Corpuscular Volume 90.8 fl (80-100); Mean Platelet Volume 11.6 fl (7.4-10.4); Platelet Count Result 169 k/mm3 (150-375); Red Blood Count 5.22 M/mm3 (4.6-6.20); Red Cell Distribution Width 13.1 % (11.5-14.5); White Blood Count 7.7 K/mm3 (4.5-10.0)
--- NOTE | 2024-02-17 07:08 | ED.GENADULT ---
HPI - General Adult General Chief complaint: Chest Pain Stated complaint: chest pain, side pain, [place] Time Seen by Provider: 02/17/24 06:54 History of Present Illness HPI narrative: 39 year-old male presenting to the emergency department for evaluation for right-sided rib pain. Patient states approximately 3 weeks ago he started having symptoms including sneezing. Patient states the last few days he has had right lower rib pain. Patient reports the pain is worsened with sneezing and moving. Patient denies any affect of food. Patient denies any other chest pain or shortness of breath. Related Data Home Medications Medication Instructions Recorded Confirmed albuterol sulfate 90 mcg/actuation 2 puff inhalation QID PRN 09/24/19 12/14/23 aerosol inhaler (ProAir HFA) Shortness Of Breath Or Wheezing Allergies Allergy/AdvReac Type Severity Reaction Status Date / Time No Known Allergies Allergy Verified 02/17/24 06:56 Review of Systems Review of Systems: All systems reviewed & are unremarkable except as noted in HPI and below PMFSH Past Medical History Medical History Asthma Surgical History Surgical History History of circumcision Social History Social History Smoking status: Never smoker Alcohol intake: current Substance use: never Gender identity (if verbalized by the patient): Male Exam Narrative: APPEARANCE: Well appearing, no pain, no distress, well-nourished. HEAD: normocephalic, atraumatic. EYES: PERRLA/EOMI, conjunctivae clear. NOSE: Normal no drainage EARS:TMS clear with good light reflex. THROAT: Pharynx clear, no exudate. NECK: Supple. No adenopathy, no masses. RESPIRATORY: Airway patent, respirations nonlabored. Clear to auscultation bilaterally, no rales, rhonchi, wheezing. CARDIOVASCULAR: Regular rate and rhythm without murmurs rubs or gallops. ABDOMINAL: Soft, nontender, nondistended, normal bowel sounds MUSCULOSKELETAL: right low rib tenderness to palpation NEURO: Alert. Cranial nerves II through XII intact. Grossly intact SKIN: Warm, dry. Normal Color Course Vital Signs Vital signs: Vital Signs Pulse Rate 98 02/17/24 06:51 Respiratory Rate 18 02/17/24 06:51 Pulse Oximetry 97 02/17/24 06:51 Temperature 97.8 F 02/17/24 06:52 Pulse Rate 85 02/17/24 09:07 Respiratory Rate 18 02/17/24 09:07 Blood Pressure 156/90 H 02/17/24 09:07 Pulse Oximetry 98 02/17/24 09:07 Oxygen Delivery Room Air 02/17/24 07:09 Medical Decision Making MDM Narrative Medical decision making narrative: 39-year-old male presents emergency department for evaluation for right lower rib tenderness to palpation patient is afebrile with no leukocytosis stable hemoglobin of 14.9. Patient has no acute abnormalities on his CMP lipase is negative troponin was negative. Patient was negative for influenza RSV and for COVID. Chest x-ray shows no acute cardiopulmonary abnormality and no rib fractures. I do suspect rib contusions versus rib fracture due to the patient's sneezing. Patient was updated on the results of his workup. Patient was encouraged close follow-up with his primary care physician. Differential Diagnosis Differential Diagnosis: Pneumonia, pneumothorax, rib fracture, rib contusion Vital Signs Vital Signs: Vital Signs Pulse Rate 98 02/17/24 06:51 Respiratory Rate 18 02/17/24 06:51 Pulse Oximetry 97 02/17/24 06:51 Temperature 97.8 F 02/17/24 06:52 Pulse Rate 85 02/17/24 09:07 Respiratory Rate 18 02/17/24 09:07 Blood Pressure 156/90 H 02/17/24 09:07 Pulse Oximetry 98 02/17/24 09:07 Oxygen Delivery Room Air 02/17/24 07:09 Lab Data Lab results reviewed: Yes I reviewed the patient's lab results. 02/17/24 07:03 02/17/24 07:03 Andra
[2024-02-17] MEDS: ASPIRIN 81 MG CHEWABLE TABLET 324 MG PO (07:16)
[2024-02-17] MEDS: CYCLOBENZAPRINE HCL 10 MG TABLET PO (07:16)
[2024-02-17] MEDS: HYDROcodone/acetaminophen (*CRX) 5-325 MG TABLET 1 TAB PO (07:17)
[2024-02-17 07:39] LABS: Troponin I < 0.012 ng/mL (0.000-0.034)
[2024-02-17 07:42] LABS: Prothrombin Time 13.1 Seconds (11.1-14.7)
[2024-02-17 07:43] LABS: Partial Thromboplastin Time 24.9 Seconds (22.3-36.8)
[2024-02-17 07:43] LABS: Alanine Aminotransferase 25 U/L (6-50); Albumin Level 4.4 g/dL (3.5-5.1); Alkaline Phosphatase 43 U/L (38-126); Anion Gap 6 mmol/L (4-12); Aspartate Amino Transferase 31 U/L (17-59); Bilirubin,Total 0.4 mg/dL (0.2-1.3); Blood Urea Nitrogen 14 mg/dL (9-20); Calcium 9.1 mg/dL (8.4-10.2); Carbon Dioxide 30 mmol/L (22-30); Chloride 103 mmol/L (98-107); Estimated CRCL calculation 131 ml/min; Estimated Glomerular Filt Rate > 60; Glucose 132 mg/dL (65-110); Lipase 100 U/L (23-300); Potassium 4.3 mmol/L (3.4-5.0); Sodium 139 mmol/L (137-145)
[2024-02-17 08:25] LABS: Eosinophils Absolute Manual 0.07 K/mm3 (0.02-0.50); Eosinophils Percent Manual 1 % (0-4); Lymphocytes Absolute Manual 1.38 K/mm3 (1.1-4.5); Monocytes Absolute Manual 0.61 K/mm3 (0.1-0.90); Monocytes Percent Manual 8 % (3-9); Neutrophils Percent Manual 73 % (46-73); Platelet Estimate Adequate (Adequate); Total Cells Counted 100
[2024-02-17 08:26] LABS: Schistocytes None Seen
[2024-02-17 08:27] LABS: Atypical Lymphocytes Present
[2024-02-17 08:47] LABS: Influenza A QL RT-PCR Negative (Negative); Influenza B QL RT-PCR Negative (Negative); RSV RNA, RT-PCR Negative (Negative); SARS-CoV-2 RNA PCR Negative (Negative)
== END 2024-02-17 09:08 | disposition home or self-care (01) ==
PROVIDERS: Emergency Medicine; Emergency Provider Emergency Medicine; PCP Nurse Practitioner Family
DX: R07.81 Pleurodynia (principal); Z20.822 Contact with and (suspected) exposure to COVID-19; J45.909 Unspecified asthma, uncomplicated; R94.31 Abnormal electrocardiogram [ECG] [EKG]
CPT/HCPCS: 36415; 71046; 80053; 83690; 84484; 85025; 85610; 85730; 87637; 93005; 99284; A9270

== ENCOUNTER 2024-07-05 10:53 | Outpatient (CLI) | payer BC, MEDICAID, SELFPAY ==
--- OUTSIDE RECORDS SUMMARY | 2024-07-05 11:46 | XMS_ITS | Clinical Summary ---
Author Organization [facility] al Address [address] [place] [address] Care Team Providers Care Special Delivery Mail Carrier Name Role Phone Bandar Lau MD Primary Care Provider [phone] Allergies No known active allergies Medications cyclobenzaprine (FLEXERIL) 10 mg tablet Take 1 tablet (10 mg total) by mouth every 8 (eight) hours as needed for muscle spasms 12 tablet 03/11/2024 Active lidocaine (LIDODERM) 5 % Place 3 patches on the skin daily Remove & discard patch within 12 hours or as directed by . 12 patch 03/11/2024 Active Social History Tobacco Use Types Packs/Day Years Used Date Smoking Tobacco: Never Assessed Personal Safety Answer Date Recorded Have you ever been in or are you currently in a harmful physical or emotional relationship or is someone making you feel afraid or unsafe? Denies 03/10/2024 Sex and Gender Information Value Date Recorded Sex Assigned at Not on file Legal Sex Male 7:29 AM GLASS CHECKER Gender Identity Male 07/19/2022 7:54 PM CDT Sexual Orientation Straight 07/19/2022 7: 54 PM CDT Last Filed Vital Signs Vital Sign Reading Time Taken Comments Blood Pressure 157/103 03/10/2024 10:39 PM GLASS CHECKER Pulse 84 03/10/2024 10:39 PM GLASS CHECKER Temperature 36.8 C (98.2 F) 03/10/2024 10:39 PM GLASS CHECKER Respiratory Rate 20 03/10/2024 10:39 PM GLASS CHECKER Oxygen Saturation 95% 03/10/2024 10:39 PM GLASS CHECKER Inhaled Oxygen Concentration - - Weight 136.1 kg (300 lb) 03/10/2024 10:39 PM GLASS CHECKER Height 167.6 cm (5' 6 ) 03/10/2024 10:39 PM GLASS CHECKER Body Mass Index 48.42 03/10/2024 10:39 PM GLASS CHECKER Plan of Treatment Health Maintenance Due Date Last Done Comments Depression Screening 1986 Hepatitis C Screening 1986 DTaP/Tdap/Td Vaccine (1 - Tdap) 1997 Varicella Vaccines (1 of 2 - 13+ 2-dose series) 1999 Hepatitis B Screening 02/07/2004 Regular Well Visit/Exam 18-64 02/07/2004 Pneumococcal vaccine <65 (1 of 2 - PCV) 2005 Influenza Vaccine (#1) 2023 HPV Vaccines Aged Out No longer eligi ble based on patient's age to complete this topic Insurance [facility] [place] [employer] [facility] [place] [employer] Care Teams Special Delivery Mail Carrier Relationship Specialty Start Date End Date Bandar Lau MD PCP - General Emergency Medicine 06/21/22
--- OUTSIDE RECORDS SUMMARY | 2024-07-05 11:46 | XMS_ITS | Clinical Summary ---
Author Organization [facility] Address [address] [place] [address] Care Team Providers Care Pants Presser Name Role Phone Susan Nunes NP Primary Care Provider [phone] Allergies No known active allergies Medications traMADol (ULTRAM) 50 MG tabletIndicatio ns:Acute Pain < 3 Day Supply Take 1 tablet (50 mg total) by mouth every 6 (six) hours as needed. Indications: Acute Pain < 3 Day Supply 10 tablet 11/30/2023 Active methylPREDNISol one, TERRA, (MEDROL DOSEPAK) 4 MG tablet 6 TABLETS ON DAY ONE, 5 TABLETS DAY TWO, 4 TABLETS DAY THREE, 3 TABLETS DAY FOUR, 2 TABLETS DAY FIVE, AND 1 TABLET DAY SIX 1 each 11/30/2023 Active Social History Tobacco Use Types Packs/Day Years Used Date Smoking Tobacco: Never Smokeless Tobacco: Never Tobacco Cessation:Counseling Given: Not Answered Alcohol Use Standard Drinks/Week Comments Not Currently 0 (1 standard drink = 0.6 oz pur e alcohol) Sex and Gender Information Value Date Recorded Sex Assigned at Not on file Legal Sex Male 8:27 PM CDT Gender Identity Not on file Sexual Orientation Not on file Last Filed Vital Signs Vital Sign Reading Time Taken Comments Blood Pressure 137/96 02/01/2024 10:40 PM CDT Pulse 72 02/01/2024 10:40 PM CDT Temperature 36.3 C (97.3 F) 02/01/2024 8:43 PM CDT Respiratory Rate 14 02/01/2024 10:40 PM CDT Oxygen Saturation 92% 02/01/2024 10:40 PM CDT Inhaled Oxygen Concentration - - Weight 136.1 kg (300 lb) 02/01/2024 8:43 PM CDT Height 167.6 cm (5' 6 ) 02/01/2024 8:43 PM CDT Body Mass Index 48.42 02/01/2024 8:43 PM CDT Plan of Treatment Health Maintenance Due Date Last Done Comments Annual Physical 1989 Hepatitis C 02/07/2004 DTaP, Tdap and Td Vaccines ( 4 - Tdap) 2005 08/08/1991, 11/10/1989, 1986 COVID-19 Vaccine (2023-2 5 season) 2023 Influenza Adult (#1) 2024 Hepatitis B Vaccines Completed 07/13/1999, 07/03/1998, 12/10/1997 HPV Vaccines Aged Out No longer eligi ble based on patient's age to complete this topic Meningococcal B Vaccine Aged Out No l onger eligible based on patient's age to complete this topic Meningococcal Vaccine Aged Out No jazmín babita eligible based on patient's age to complete this topic Pneumococcal Vaccine: Pediatrics (0 to 5 Years) and At-Risk Patients (6 to 64 Years) Aged Out No longer eligible b ased on patient's age to complete this topic RSV Immunizations Under 20 Months Aged Out No longer eligible b ased on patient's age to complete this topic Insurance [facility] [address] [facility] Care Teams Pants Presser Relationship Specialty Start Date End Date Susan Nunes NP [address] [place] [id number] PCP - General Nurse Practitioner Family 11/30/23
--- OUTSIDE RECORDS SUMMARY | 2024-07-05 11:46 | XMS_ITS | Referral Summary ---
Author Organization [facility] al Address [address] [place] [address] Care Team Providers Care Java Lead Architect Name Role Phone Bandar Lau MD Primary Care Provider [phone] Allergies No known active allergies Medications cyclobenzaprine [...] on file Legal Sex Male 7:29 AM DYER HELPER Gender Identity Male 07/19/2022 7:54 PM CDT Sexual Orientation Straight 07/19/2022 7: 54 PM CDT Last Filed Vital Signs Vital Sign Reading Time Taken Comments Blood Pressure 157/103 03/10/2024 10:39 PM DYER HELPER Pulse 84 03/10/2024 10:39 PM DYER HELPER Temperature 36.8 C (98.2 F) 03/10/2024 10:39 PM DYER HELPER Respiratory Rate 20 03/10/2024 10:39 PM DYER HELPER Oxygen Saturation 95% 03/10/2024 10:39 PM DYER HELPER Inhaled Oxygen Concentration - - Weight 136.1 kg (300 lb) 03/10/2024 10:39 PM DYER HELPER Height 167.6 cm (5' 6 ) 03/10/2024 10:39 PM DYER HELPER Body Mass Index 48.42 03/10/2024 10:39 PM DYER HELPER Plan of Treatment Not on file Insurance [employer] Member Subscriber Plan / Payer (Ef fective 2023-Present) Name:Aaliyah Patino Relation to Subscriber:Self Name:Aaliyah Patino Payer ID:[id number] (NAIC) Group ID:Not on file Type:MEDICAID RISK OTHER Address: [place] [id number] [employer] Care Teams Java Lead Architect Relationship Specialty Start Date End Date Bandar Lau MD PCP - General Emergency Medicine 06/21/22
--- OUTSIDE RECORDS SUMMARY | 2024-07-05 11:46 | XMS_ITS | CONTINUITY OF CARE DOCUMENT ---
Author Name shashi danielle Address Unknown Organization [facility] Address [address] [place] [address] Phone [phone] Care Team Providers Care Radiotelegraphist Name Role Phone Jessi Wei MD Unavailable JOSH AMAYA MD Unavailable [phone] JOSH AMAYA MD Unavailable [phone] PROBLEMS Condition Status Date Provider Notes Cardiology examination active Yeny Ventim iglia PARK MAINTAINER Asthma active Yeny Ventimiglia PARK MAINTAINER GERD active Yeny Ventimiglia PARK MAINTAINER Morbid obesity active Yeny Ventimiglia FN P Snoring active Yeny Ventimiglia PARK MAINTAINER Hypercholesterolemia active Yeny Ventimig ida PARK MAINTAINER Shortness of breath active Yeny Ventimigl ia PARK MAINTAINER Elevated blood glucose active Yeny Ventim iglia PARK MAINTAINER ENCOUNTERS Date Type Provider Location Encounter Diag nosis - In-person encounter Office Visit Jessi Wei MD [facility] Cardiology examinationAsthmaGERDMorbid obesitySnoringHypercholesterolemiaShortness of breathElevated blood glucose VITAL SIGNS Date Observation Value Provider Body Mass Index (Ratio) 51.08 kg/m2 Raya Snider blood pressure, diastolic 65 mm[Hg] Cecilia nkLogic blood pressure, systolic 110 mm[Hg] Jennifer Silverman oxygen saturation, oximetry 98 % Gloria Vargas respiratory rate E&M 18 /min Gloria Vargas pulse rate 78 /min Gloria Vargas blood pressure, cuff size large Francisco Vargas blood pressure, diastolic 65 mm[Hg] Francisco Vargas blood pressure, systolic 110 mm[Hg] She manuela Vargas weight E&M 307 [lb_av] Gloria Vargas height E&M 65 [in_i] Gloria Vargas HISTORY OF MEDICATION USE Medication Status Instructions Dates Provider Indications Com ments albuterol sulfate 90 mcg/actuation HFA aerosol inhaler active INHALE 2 PUFFS BY MOUTH EVERY 4 HOURS Yeny Tamekamiglia [facility] SOCIAL HISTORY Date Observation Value Provider alcohol use, average drinks per day social Felda Tamekamiglalan [facility] alcohol use yes Felda Tamekamargarita prieto [facility] social history E&M S moking History: Osmin brewer has never smoked. Yeny Tamekamiglia [facility] social history reviewed E&M revi ewed - no changes required [facility] smoking status Never smoker Gloria Vargas FAMILY HISTORY Family Member Condition Mother Family History of Co ngestive Heart Failure: INSURANCE PROVIDERS Payer name Policy type / Coverage type Amy red democrat ID SELF PAY [id number] TREATMENT PLAN Date Name Performer [id number],C, C mundo home sleep study Felda Ventimiglia [facility] [id number],C, W Eight loss advised Yeny Ventimiglia [facility] [id number],C, O n inhaler as needed Yeny Ventimiglia [facility] [id number],C, C vee lipid panel Felda Ventimiglia [facility] [id number],C, F amily hx of CHF. Hx of asthma and morbid obesity. Will check labwork and home sleep study. If there are abnormalities, we may proceed with further testing. [facility] [id number],C, C heck A1C Felda Ventimiglia [facility] Cardiology: C razk home sleep study [facility] Cardiology: W Eight loss advised [facility] Cardiology: O n inhaler as needed [facility] Cardiology: C razkl lipid panel [facility] Cardiology: F amily hx of CHF. Hx of asthma and morbid obesity. Will check labwork and home sleep study. If there are abnormalities, we may proceed with further testing. [facility] Cardiology: C heck A1C [facility] Date Name COMPREHENSIVE METABO LIC PANEL, W/EGFR CBC (INCLUDES DIFF/P LT) Sleep Study Home HEMOGLOBIN A1c PROBNP, N TERMINAL LIPID PANEL HISTORY OF PROCEDURES Procedure Date Procedure Name Provider Procedure Notes S tatus EKG Jessi Wei MD complet ed
[2024-07-05 12:09] LABS: Add Urine Microscopic? NO; Appearance Urine Clear (Clear); Bilirubin Urine Negative (Negative); Blood Urine Negative (Negative); Color Urine Yellow (Yellow); Glucose Urine UA Negative (Negative); Ketones Urine Negative (Negative); Leukocyte Esterase Ur Negative LEU/UL (Negative); Nitrate Urine Negative (Negative); Protein Urine Negative (Negative); Specific Grav Ur 1.021 (1.001-1.035); pH Urine 6.5 (5.0-9.0)
[2024-07-05 12:12] LABS: Hematocrit 47.4 % (42.0-52.0); Hemoglobin 15.1 g/dL (14.0-18.0); Mean Corpuscular HGB Conc 31.9 g/dl (32-36); Mean Corpuscular Hemoglobin 28.5 pg (26-34); Mean Corpuscular Volume 89.6 fl (80-100); Mean Platelet Volume 12.2 fl (7.4-10.4); Platelet Count Result 173 k/mm3 (150-375); Red Blood Count 5.29 M/mm3 (4.6-6.20); White Blood Count 6.3 K/mm3 (4.5-10.0)
[2024-07-05 12:18] LABS: Alanine Aminotransferase 51 U/L (6-50); Albumin Level 4.4 g/dL (3.5-5.1); Alkaline Phosphatase 57 U/L (38-126); Anion Gap 8 mmol/L (4-12); Aspartate Amino Transferase 33 U/L (17-59); Bilirubin,Total 0.5 mg/dL (0.2-1.3); Blood Urea Nitrogen 10 mg/dL (9-20); Calcium 9.1 mg/dL (8.4-10.2); Carbon Dioxide 31 mmol/L (22-30); Chloride 101 mmol/L (98-107); Cholesterol 239 mg/dL (0-200); Estimated Glomerular Filt Rate > 60; Glucose 106 mg/dL (65-110); HDL Direct 28 mg/dL; Potassium 4.2 mmol/L (3.4-5.0); Sodium 140 mmol/L (137-145); Triglycerides 156 mg/dL (<150)
[2024-07-05 12:19] LABS: Hemoglobin A1C 6.8 % (<5.7)
[2024-07-05 12:29] LABS: LDL Cholesterol Direct 150 mg/dL
[2024-07-05 12:45] LABS: Prostate Specific Antigen 0.4 ng/mL (< OR = 4.0)
[2024-07-05 12:53] LABS: Syphilis IgG/IgM Antibody Negative (Negative)
[2024-07-05 12:58] LABS: Hepatitis B Surface Antigen Negative (Negative)
[2024-07-05 13:03] LABS: HAV RESULT Negative (Negative); Hepatitis B Core IgM Result Negative (Negative)
[2024-07-05 13:09] LABS: HIV 1/2 Ab P24 Ag Result Negative (Negative)
[2024-07-05 13:15] LABS: Hepatitis C Virus Antibody Negative (Negative)
[2024-07-05 13:35] LABS: Chlamydia trachomatis NOT DETECTED (NOT DETECTE); Neisseria gonorrhoeae PCR NOT DETECTED (NOT DETECTE)
== END 2024-07-05 10:54 | disposition home or self-care (01) ==
PROVIDERS: PCP Nurse Practitioner Family; Visit Provider Nurse Practitioner Family
DX: Z13.0 Encounter for screening for diseases of the blood and blood-forming organs and certain disorders involving the immune mechanism (principal); Z13.228 Encounter for screening for other metabolic disorders; Z13.1 Encounter for screening for diabetes mellitus; E66.01 Morbid (severe) obesity due to excess calories; R35.1 Nocturia; R35.0 Frequency of micturition; Z11.3 Encounter for screening for infections with a predominantly sexual mode of transmission; Z13.220 Encounter for screening for lipoid disorders; Z11.59 Encounter for screening for other viral diseases; Z11.4 Encounter for screening for human immunodeficiency virus [HIV]
CPT/HCPCS: 36415; 80053; 80061; 80074; 81003; 83036; 84153; 85027; 86592; 86593; 86695; 86696; 86703; 87491; 87591; G0432

== ENCOUNTER 2024-08-12 08:03 | Outpatient (CLI) | payer BC, MEDICAID, SELFPAY ==
--- OUTSIDE RECORDS SUMMARY | 2024-08-12 08:12 | XMS_ITS | CONTINUITY OF CARE DOCUMENT ---
Author Name shashi danielle Address Unknown Organization [facility] Address [address] [place] [address] Phone [phone] Care Team Providers Care Wire Brusher Name Role Phone Jessi Wei MD Unavailable JOSH AMAYA MD Unavailable [phone] JOSH AMAYA MD Unavailable [phone] PROBLEMS Condition Status Date Provider Notes Cardiology examination active Yeny Ventim iglia FUEL CELL TEST ENGINEER Asthma active Yeny Ventimiglia FUEL CELL TEST ENGINEER GERD active Yeny Ventimiglia FUEL CELL TEST ENGINEER Morbid obesity active Yeny Ventimiglia FN P Snoring active Yeny Ventimiglia FUEL CELL TEST ENGINEER Hypercholesterolemia active Yeny Ventimig ida FUEL CELL TEST ENGINEER Shortness of breath active Yeny Ventimigl ia FUEL CELL TEST ENGINEER Elevated blood glucose active Yeny Ventim iglia FUEL CELL TEST ENGINEER ENCOUNTERS Date Type Provider Location Encounter Diag nosis - In-person encounter Office Visit Jessi Wei MD [facility] Cardiology examinationAsthmaGERDMorbid obesitySnoringHypercholesterolemiaShortness of breathElevated blood [...] BY MOUTH EVERY 4 HOURS Yeny Tamekamiglia [facility] SOCIAL HISTORY Date Observation Value Provider alcohol use, average drinks per day social Fenton Tamkeamiglalan [facility] alcohol use yes Fenton Tamekamargarita prieto [facility] social history E&M S moking History: Osmin brewer has never smoked. Yeny Tamekamiglia [facility] social history reviewed E&M revi ewed - no changes required [facility] smoking status Never smoker Gloria Vargas FAMILY HISTORY Family Member Condition Mother Family History of Co ngestive Heart Failure: INSURANCE PROVIDERS Payer name Policy type / Coverage type Amy red alliance party ID SELF PAY [id number] TREATMENT PLAN Date Name Performer [id number],C, C mundo home sleep study Fenton Ventimiglia [facility] [id number],C, W Eight loss advised Yeny Ventimiglia [facility] [id number],C, O n inhaler as needed Yeny Ventimiglia [facility] [id number],C, C vee lipid panel Fenton Ventimiglia [facility] [id number],C, F amily hx of CHF. Hx of asthma and morbid obesity. Will check labwork and home sleep study. If there are abnormalities, we may proceed with further testing. [facility] [id number],C, C heck A1C Fenton Ventimiglia [facility] Cardiology: C razk home sleep study [facility] Cardiology: W Eight loss advised [facility] Cardiology: O n inhaler as needed [facility] Cardiology: C razkl lipid panel [facility] Cardiology: F amily hx of CHF. Hx of asthma and morbid obesity. Will check labwork and home sleep study. If there are abnormalities, we may proceed with further testing. [facility] Cardiology: C heck A1C [facility] Date Name COMPREHENSIVE METABO LIC PANEL, W/EGFR CBC (INCLUDES DIFF/P LT) Sleep Study Home HEMOGLOBIN A1c PROBNP, N TERMINAL LIPID PANEL HISTORY OF PROCEDURES Procedure Date Procedure Name Provider Procedure Notes S tatus EKG Jessi Wei MD complet ed
--- OUTSIDE RECORDS SUMMARY | 2024-08-12 08:12 | XMS_ITS | Clinical Summary ---
Author Organization [facility] al Address [address] [place] [address] Care Team Providers Care Geophysical Drafter Name Role Phone Bandar Lau MD Primary Care Provider Allergies No known active allergies Medications cyclobenzaprine [...] on file Legal Sex Male 7:29 AM EXTERNAL AUDITOR Gender Identity Male 07/19/2022 7:54 PM CDT Sexual Orientation Straight 07/19/2022 7: 54 PM CDT Last Filed Vital Signs Vital Sign Reading Time Taken Comments Blood Pressure 157/103 03/10/2024 10:39 PM EXTERNAL AUDITOR Pulse 84 03/10/2024 10:39 PM EXTERNAL AUDITOR Temperature 36.8 C (98.2 F) 03/10/2024 10:39 PM EXTERNAL AUDITOR Respiratory Rate 20 03/10/2024 10:39 PM EXTERNAL AUDITOR Oxygen Saturation 95% 03/10/2024 10:39 PM EXTERNAL AUDITOR Inhaled Oxygen Concentration - - Weight 136.1 kg (300 lb) 03/10/2024 10:39 PM EXTERNAL AUDITOR Height 167.6 cm (5' 6 ) 03/10/2024 10:39 PM EXTERNAL AUDITOR Body Mass Index 48.42 03/10/2024 10:39 PM EXTERNAL AUDITOR Plan of Treatment Health Maintenance Due Date [...] patient's age to complete this topic Insurance [facility] [employer] [facility] [employer] Care Teams Geophysical Drafter Relationship Specialty Start Date End Date Bandar Lau MD PCP - General Emergency Medicine 06/21/22
--- OUTSIDE RECORDS SUMMARY | 2024-08-12 08:12 | XMS_ITS | Clinical Summary ---
Author Organization [facility] Address [address] [place] [address] Care Team Providers Care Certified Orthotist Name Role Phone Susan Nunes NP Primary Care Provider [phone] Allergies No known active allergies Medications traMADol [...] 1986 COVID-19 Vaccine (2023-2 5 season) 2023 Hepatitis B Vaccines Completed 07/13/1999, 07/03/1998, 12/10/1997 [...] 5 Years) and At-Risk Patients (6 to 49 Years) Aged Out No longer eligible b ased on patient's age to complete this topic RSV Immunizations Under 20 Months Aged Out No longer eligible b ased on patient's age to complete this topic Insurance [facility] Care Teams Certified Orthotist Relationship Specialty Start Date End Date Susan Nunes NP [address] [place] [address] PCP - General Nurse Practitioner Family 11/30/23
--- OUTSIDE RECORDS SUMMARY | 2024-08-12 08:12 | XMS_ITS | Referral Summary ---
Author Organization [facility] al Address [address] [place] [address] Care Team Providers Care Boilermaker Ship Name Role Phone Bandar Lau MD Primary Care Provider [phone] Allergies No known active allergies Medications cyclobenzaprine [...] on file Legal Sex Male 7:29 AM FOSTER PARENT Gender Identity Male 07/19/2022 7:54 PM CDT Sexual Orientation Straight 07/19/2022 7: 54 PM CDT Last Filed Vital Signs Vital Sign Reading Time Taken Comments Blood Pressure 157/103 03/10/2024 10:39 PM FOSTER PARENT Pulse 84 03/10/2024 10:39 PM FOSTER PARENT Temperature 36.8 C (98.2 F) 03/10/2024 10:39 PM FOSTER PARENT Respiratory Rate 20 03/10/2024 10:39 PM FOSTER PARENT Oxygen Saturation 95% 03/10/2024 10:39 PM FOSTER PARENT Inhaled Oxygen Concentration - - Weight 136.1 kg (300 lb) 03/10/2024 10:39 PM FOSTER PARENT Height 167.6 cm (5' 6 ) 03/10/2024 10:39 PM FOSTER PARENT Body Mass Index 48.42 03/10/2024 10:39 PM FOSTER PARENT Plan of Treatment Not on file Insurance [facility] [employer] [facility] Member Subscriber Plan / Payer (Ef fective 2023-Present) Name:Aaliyah Patino Relation to Subscriber:Self Name:Aaliyah Pation Payer ID:[id number] (NAIC) Group ID:Not on file Type:MEDICAID RISK OTHER Address: [place] [id number] [employer] Care Teams Boilermaker Ship Relationship Specialty Start Date End Date Bandar Lau MD PCP - General Emergency Medicine 06/21/22
[2024-09-04 12:39] VITALS: BMI 51.6
--- NOTE | 2024-09-04 12:39 | WPDSLEEPSTUD ---
Sleep Study Date of Study: 08/12/24 Ordering Provider: Susan Nunes APRN Interpreting Physician: Terri Pedroza DO Sleep Study Type: Split Polysomnogram Height: 1.68 m Weight: 145.15 kg Body Mass Index: 51.6 Neck Circumference (inches): 22 [place]: 16 Reason for Sleep Study Daytime hypersomnia Sleep History The patient is a 39-year-old male that had a sleep study ordered by his primary care for evaluation of sleep apnea. The patient frequently awakens from sleep short of breath. He frequently awakens at night with heartburn, belching or cough. He frequently snores and is frequently loud enough that others complain. He rarely has trouble sleeping when he has a cold. He rarely wakes up gasping for air throughout the night. He frequently has breathing problems at night observed by himself or others. He rarely sweats excessively at night. He frequently has heart palpitations or irregular heartbeats during the night. He constantly falls asleep during the day and occasionally while driving. He denies cataplexy. He occasionally has trouble at school or work due to sleepiness. He rarely feels unable to move waking up or falling asleep. He rarely experiences vivid dreamlike scenes upon awakening or falling asleep. He denies feeling afraid of going to sleep. He occasionally has nightmares and occasionally remembers his dreams. He occasionally has thoughts racing through his mind. He frequently feels sad, depressed and anxious. He occasionally has muscular tension. He denies noticing parts of his body jerk. He denies kicking during the night. He frequently has crawling and aching feelings in his legs and frequently has leg pain during the night. He denies grinding his teeth during sleep and denies awakening with morning jaw pain. He frequently is bothered by pain during the day but rarely awakened by pain during the night. He frequently wakes up feeling stiff in the morning. He constantly wakes up with sore or achy muscles. He constantly wakes up with pain in the neck, spine or other joints. He goes to bed between 10:00 p.m. to midnight on both weekdays and weekends. It takes him less than 5 minutes to fall asleep. He wakes up 3-5 times throughout the night to urinate and he can take several hours for him to fall back asleep. He wakes up between 5-7 a.m. on both weekdays and weekends. He typically gets 4-5 hours of sleep per night. He will stay in bed for 1-2 hours after waking up in the morning. He currently lives with his brother and his family. He denies consuming any caffeinated beverages within 2 hours of bedtime. He denies engaging in physical exercise before bedtime. He will watch television before falling asleep. He will take naps in afternoon or the evening but they are not refreshing. He consumes 1 caffeinated beverage per day. He denies tobacco, alcohol and recreational drug use. [facility] Past Medical History Medical History Back pain Asthma Surgical History Surgical History History of circumcision Social History Social History Smoking status: Never smoker Alcohol intake: current Substance use: never Gender identity (if verbalized by the patient): Male Medications Home Medications ?Medication ?Instructions ?Recorded ?Confirmed ?Type meloxicam 15 mg tablet 15 mg PO DAILY #90 tabs 07/11/24 08/01/24 Rx methocarbamol 500 mg tablet 500 mg PO TID PRN muscle spasm #30 07/11/24 08/01/24 Rx tabs albuterol sulfate 90 mcg/actuation 2 puff inhalation Q4-6H PRN 08/02/24 Rx aerosol inhaler (ProAir HFA) Shortness Of Breath Or Wheezing #8.5 grams tramadol 50 mg tablet 50 mg PO TID PRN pain #21 tabs 09/02/24 Rx semaglutide 0.25 mg or 0.5 mg (2 0.25 mg (0.368 mL) subcut WEEKLY 09/03/24 Rx mg/3 mL) subcutaneous pen injector #3 mL (Ozempic) Sleep Procedure A full night split study using the [employer] multi-channel system recorded the standard physiologic parameters including EEG, EOG, submentalis EMG, anterior tibialis EMG, EKG, body position, nasal and oral airflow using nasal pressure sensor and thermistor.? Respiratory parameters of chest and abdominal movements were recorded with Respiratory Inductance Plethysmography belts. Oxygen saturation was recorded by pulse oximetry. Video monitoring was also performed. Sleep stages, periodic limb movements, and EEG arousals were scored in 30 second epochs according to the criteria of the AASM Scoring Manual. The Apnea-Hypopnea Index was calculated using [facility] guidelines for definition of hypopnea with 4% O2 desaturations while scoring respiratory events. Sleep Architecture During the diagnostic portion of the study, the total recording time was 153.4 minutes. The total sleep time was 139.0 minutes. Sleep latency was 0.9 minutes.? REM latency was 83.0 minutes. Sleep Efficiency was 90.6%. The patient had 5 awakenings for an awakening index of 2.2. Wake after sleep onset time was 13.5 minutes. The patient spent 3.0 minutes, 2.2% of total sleep time in Stage N1. The patient spent 107.5 minutes, 77.3% in Stage N2. The patient spent 17.0 minutes, 12.2% in Stage N3. The patient spent 11.5 minutes, 8.3% in Stage REM sleep. At 01:37:44 AM the patient was placed on PAP treatment and was titrated at pressures ranging from 5 cm H20 up to 22/18 cm H20. During the treatment portion of the study, the total recording time was 309.2 minutes.? The total sleep time was 295.5 minutes. Sleep latency was 1.0 minutes. REM latency was 38.5 minutes. Sleep Efficiency was 95.6%. Wake after Sleep Onset time was 13.0 minutes. The patient spent 5.5 minutes, 1.9% of total sleep time in Stage N1. The patient spent 181.0 minutes, 61.3% in Stage N2. The patient spent 23.5 minutes, 8.0% in Stage N3. The patient spent 85.5 minutes, 28.9% in Stage REM. Respiratory Analysis During the diagnostic portion of the study, the patient had 33 hypopneas, 189 obstructive apneas, 6 mixed apneas, and 7 central apneas for an overall Apnea Hypopnea Index of 101.4 events per hour. The REM Apnea Hypopnea Index was 93.9. The NREM Apnea Hypopnea Index was 102.1. The patient had a Central Apnea Hypopnea Index of 3.0. There was no evidence of Luis-Shearer Respirations. During the treatment portion of the study, the patient had 38 hypopneas, 18 obstructive apneas, 14 mixed apneas, and 6 central apneas for an overall Apnea Hypopnea Index of 15.4 events per hour. The REM Apnea Hypopnea Index was 23.9. The NREM Apnea Hypopnea Index was 12.0. The patient had a Central Apnea Hypopnea Index of 1.2. There was no evidence of Luis-Shearer Respirations. The patient was started on CPAP 5 cm H2O and titrated to BPAP 22/18 cm H2O. The patient was able to fall asleep starting on CPAP 5 cm H2O. The patient was able to achieve REM sleep study on CPAP 9 cm H2O. The patient was able to achieve a residual AHI less than 5 with both NREM and REM sleep in the lateral position on 19 cm H2O. On CPAP 17 cm H2O, the patient spent 52 minutes in NREM and 5 minutes in REM with 6 hypopneas, resulting in an AHI of 6.3. On CPAP 19 cm H2O, the patient spent 3 minutes in NREM and 26.5 minutes in REM with 1 hypopnea, resulting in an AHI of 2.0. On CPAP 20 cm H2O, the patient spent 23 minutes in NREM and 9 minutes in REM with 4 hypopneas, resulting in an AHI of 7.5. On BPAP 22/18 cm H2O, the patient spent 60 minutes in NREM and 4 minutes in REM with 7 hypopneas, resulting in an AHI of 6.6. The patient had a sleep efficiency of 97.4% on 17 cm, 100% on 19 cm, 92.8% on 20 cm and 99.2% on 22/18 cm. Arousals During the diagnostic portion of the study, there were a total of 91 arousals for an arousal index of 39.3.? There were 47 respiratory arousals for an index of 20.3. There were 0 periodic limb movement arousals for an index of 0.? There was 1 isolated limb movement arousal for an index of 0.4. There were 43 spontaneous arousals for an index of 18.6. During the treatment portion of the study, there were a total of 56 arousals for an index of 11.4.? There were 20 respiratory arousals for an index of 4.1. There were 0 periodic limb movement arousals for an index of 0.? There were 3 isolated limb movement arousals for an index of 0.6. There were 33 spontaneous arousals for an index of 6.7. Periodic Limb Movements During the diagnostic portion of the study, the patient had 1 isolated limb movement with an index of 0.4. The patient had 0 periodic limb movements with an index of 0. The patient had a total of 1 limb movement with a total limb movement index of 0.4. During the treatment portion of the study, the patient had 4 isolated limb movements with an index of 0.8. The patient had 0 periodic limb movements with an index of 0. The patient had a total of 4 limb movements with a total limb movement index of 0.8. Oximetry Data During the diagnostic portion of the study, the patient had an average oxygen saturation of 89.7% in wake with a minimum oxygen saturation of 58% and a maximum oxygen saturation of 96%. The patient had an average oxygen saturation of 83.9% in sleep with a minimum oxygen saturation of 31.0% and a maximum oxygen saturation of 95.0%. The patient had 123 oxygen desaturations resulting in an Oxygen Desaturation Index of 53.1. The patient spent 102.4 minutes, 67% of total sleep time with an oxygen saturation less than 88%. During the treatment portion of the study, the patient had an average oxygen saturation of 91.0% in wake with a minimum oxygen saturation of 84.0% and a maximum oxygen saturation of 98.0%. The patient had an average oxygen saturation of 89.7% in sleep with a minimum oxygen saturation of 69.0% and a maximum oxygen saturation of 97.0%. The patient had 64 oxygen desaturations resulting in an Oxygen Desaturation Index of 13.0. The patient spent 70.8 minutes, 23.3% of total sleep time with an oxygen saturation less than 88%. Snoring Profile Loud snoring was present continuously in the baseline portion of the study. The snoring mostly resolved once the patient was titrated to 20 cm H2O. Cardiac Profile The EKG lead showed normal sinus rhythm. No arrhythmias or premature beats were seen. During the diagnostic portion of the study, the average pulse rate was 61.6 bpm.? The minimum pulse rate was 45.0 bpm. The maximum pulse rate was 103.0 bpm. During the treatment portion of the study, the average pulse rate was 70.3 bpm.? The minimum pulse rate was 45.0 bpm. The maximum pulse rate was 109.0 bpm. EEG Profile No signs of seizure activity seen. Assessment and Plan Assessment and Plan (1) MAGALI (obstructive sleep apnea): Code(s): G47.33 - Obstructive sleep apnea (adult) (pediatric) Status: Acute Assessment and Plan: In baseline portion of the study, the patient had an overall AHI of 101.4 with desaturation to 31%. This is consistent with extremely severe sleep apnea. The patient was started on CPAP 5 cm H2O and titrated to BPAP 22/18 cm H2O. The patient's sleep apnea resolved with a high sleep efficiency on the final pressure setting. I recommend that the patient be prescribed BPAP 22/18 cm H2O, size large [employer] AirTouch F20 full face mask, BPAP filters/tubing and heated humidity. The patient was able to maintain an SpO2 >90% on the final pressure setting. This should be used with all episodes of sleep.? Compliance should be reviewed within 31-90 days of starting therapy for usage greater than 4 hours per night greater than 70% of the nights. The patient should be asked about symptoms such as?excessive daytime sleepiness, quality of sleep, decreased nocturia, increased?mental functioning such as memory, mood, and concentration. The patient also mentioned having frequent symptoms of anxiety and depression in his sleep history. I recommend that the patient complete a PHQ-9 and ORI-7 for further evaluation of mood disorders and review the results with his PCP. The patient's sleep history is suggestive of Restless Leg Syndrome. I recommend that the patient have a serum ferritin drawn for evaluation of iron deficiency anemia. If the patient has a serum ferritin less than 75 ng/mL, I recommend starting a daily iron supplement and a Vitamin C supplement for better absorption. If the serum ferritin is greater than 75 ng/mL, I recommend starting a dopamine agonist and titrating the dose until symptoms resolve. There are nonpharmacological methods to treat limb movements including daily exercise, stretching calf muscles before bed, avoiding excessive amounts of caffeine and alcohol, vitamin B supplementation, magnesium lotion massaged into legs before bed, and use of a weighted blanket. Data The data obtained during this sleep study is adequate for interpretation. Certification This sleep study has been reviewed by a board certified sleep medicine physician.
== END 2024-08-13 08:15 | disposition home or self-care (01) ==
LOC: ANHCSM 08:04
PROVIDERS: PCP Nurse Practitioner Family; Visit Provider Nurse Practitioner Family
DX: R06.83 Snoring (principal); R51.9 Headache, unspecified; R40.0 Somnolence; G47.33 Obstructive sleep apnea (adult) (pediatric)
CPT/HCPCS: 95811

== ENCOUNTER 2024-08-14 12:41 | Outpatient (RCR) | payer MEDICAID, SELFPAY ==
--- NOTE | 2024-08-14 14:32 | OPREHPOC ---
Outpatient Therapy Plan of Care This is a Multidisciplinary Plan of Care that may contain components documented by all disciplines (PT, OT, and ST.) PT Problem 1 PT Problem #1 Knowledge Deficit PT Goal 1 Goal / Goal Update *independent with HEP Target Visit 8 PT Problem 2 PT Problem #2 Pain PT Goal 1 Goal / Goal Update * pt report pain at worst of 7/10 Target Visit 8 PT Goal 2 Goal / Goal Update * radicular pain into bilateral knees at worst Target Visit 8 PT Problem 3 PT Problem #3 Impaired Flexibility PT Goal 1 Goal / Goal Update *improve flexibility of both hips, to decrease pull and strain on lumbar spine: supine hip flexion 1* R 90' 2* L 100' prone knee flexion/anterior hip-quad length , to 105' 3* R 4* L hip extension 0' 5* R 6* L Target Visit 8 PT Problem 4 PT Problem #4 Impaired Strength PT Goal 1 Goal / Goal Update *increase trunk and hip strength to 4/5, for stability to lumbar spine Target Visit 8
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
--- NOTE | 2024-08-14 14:33 | PCPTNOTE ---
pt was 15 minutes late for evaluation appt.
--- NOTE | 2024-08-14 14:33 | PCPTNOTE ---
pt reports he has transportation problems, does not have a car; and not sure when or if he can come back for any more therapy. He will call for appointments, when he can get a ride and figure it out.
--- NOTE | 2024-10-17 08:55 | OPREHPOC ---
Outpatient Therapy Plan of Care This is a Multidisciplinary Plan of Care that may contain components documented by all disciplines (PT, OT, and ST.) PT Problem 1 PT Problem #1 Knowledge Deficit PT Goal 1 Goal / Goal Update *independent with HEP 10-17-24 d/c pt stopped attending therapy goals were not addressed Target Visit 8 PT Problem 2 PT Problem #2 Pain PT Goal 1 Goal / Goal Update * pt report pain at worst of 7/10 10-17-24 d/c pt stopped attending therapy goals were not addressed Target Visit 8 PT Goal 2 Goal / Goal Update * radicular pain into bilateral knees at worst 10-17-24 d/c pt stopped attending therapy goals were not addressed Target Visit 8 PT Problem 3 PT Problem #3 Impaired Flexibility PT Goal 1 Goal / Goal Update *improve flexibility of both hips, to decrease pull and strain on lumbar spine: supine hip flexion 1* R 90' 2* L 100' prone knee flexion/anterior hip-quad length , to 105' 3* R 4* L hip extension 0' 5* R 6* L 10-17-24 d/c pt stopped attending therapy goals were not addressed Target Visit 8 PT Problem 4 PT Problem #4 Impaired Strength PT Goal 1 Goal / Goal Update *increase trunk and hip strength to 4/5, for stability to lumbar spine 10-17-24 d/c pt stopped attending therapy goals were not addressed Target Visit 8
--- NOTE | 2024-10-17 08:56 | PTOPDC ---
Assessment and note entered by Heavenly Lazo, PT Assessment Status Discharge - Pt Not Present ICD-10 Condition Codes (PT) Radiculopathy, thoracolumbar region M54.15 Onset about past year Subjective Information pt was not seen this date. Assessment PT Clinical Summary Aaliyah received the PT evaluation on August 14 and did not return for any further treatment. Discharge PT. The goals were not addressed. Plan of Care PT Services Indicated No
== END 2024-10-17 11:55 | disposition home or self-care (01) ==
LOC: ANHPT 12:41
PROVIDERS: PCP Nurse Practitioner Family; Visit Provider Nurse Practitioner Family
DX: M54.6 Pain in thoracic spine (principal)
CPT/HCPCS: 97110; 97161